=== PATIENT | male | born 2000 | race Caucasian/White ===

== ENCOUNTER 2024-12-06 22:28 | Emergency (ER) | payer SELFPAY ==
[~2024-12-06] VITALS: Ht 170.2 cm; Wt 77.0 kg
[2024-12-06 22:40] VITALS: O2SAT 99
[2024-12-06 22:41] VITALS: BP 131/83; PULSE 62; RESP 16; TEMP 36.7; O2SAT 99
== END 2024-12-07 00:27 | disposition home or self-care (01) ==
LOC: ER 22:28
DX: S01.81XA Laceration without foreign body of other part of head, initial encounter (principal); X58.XXXA Exposure to other specified factors, initial encounter; Y93.89 Activity, other specified; Y92.89 Other specified places as the place of occurrence of the external cause; Y99.8 Other external cause status
CPT/HCPCS: 99282; Z7610 ×3; A4606